=== PATIENT | male | born 1930 | race Asian ===

== ENCOUNTER → 2017-07-26 | Outpatient (CLI) | payer MEDICARE, OTHER ==
[~2017-07-26] MED LIST: ADV500 IH; ASPI81TA42 PO; ATOR20TA86 PO; BENZ100C98 PO; DUTA.5 PO; LEVA0.6319 NEB; LEVO500 PO; METO25TA3 PO; MIRT15 PO; MONT10TA21 PO; MULT-1238 PO; PRED10 PO; QUET25TA PO; RIVA15T PO; TIOT185 IH; [UNRECOGNIZED DRUG - CODE] PO
== END | disposition home or self-care (01) ==
LOC: RADPV 08:47
PROVIDERS: ATTEND Internal Medicine
DX: J44.9 Chronic obstructive pulmonary disease, unspecified (principal); R91.8 Other nonspecific abnormal finding of lung field; I70.0 Atherosclerosis of aorta; M47.812 Spondylosis without myelopathy or radiculopathy, cervical region; M81.0 Age-related osteoporosis without current pathological fracture; M46.02 Spinal enthesopathy, cervical region
CPT/HCPCS: 71020; 72040